=== PATIENT | female | born 2000 | race American Indian/Alaskan Native ===

== ENCOUNTER 2021-04-20 20:36 | Emergency (ER) | payer SELFPAY ==
[2021-04-21 00:10] VITALS: BP 131/78
[2021-04-21 00:53] LABS: Bilirubin,Urine NEG (Negative); Blood,Urine NEG (Negative); Color,Urine Yellow (Yellow); Mucus,Urine FEW /HPF; Protein,Urine <15 mg/dL mg/dL (Negative); Urobilinogen,Urine < 2.0 mg/dL (<2.0); WBC,Urine < 1.0 /HPF (0.0-6.0)
== END 2021-04-21 05:25 | disposition left against medical advice (07) ==
LOC: ED 20:36
DX: R11.10 Vomiting, unspecified (principal); Z53.21 Procedure and treatment not carried out due to patient leaving prior to being seen by health care provider
CPT/HCPCS: 81001

== ENCOUNTER 2021-11-09 09:52 | Outpatient (CLI) | payer OTHER ==
[2021-11-09 10:29] VITALS: BP 119/74
[2021-11-09] MEDS ORDERED: LACTATED RINGERS 500 ML IV ONE (10:53)
[2021-11-09] MEDS ORDERED: LACTATED RINGERS 1,000 ML IV SCH (11:00)
[2021-11-09 11:22] LABS: Bacteria,Urine 1+ /HPF (Negative); Bilirubin,Urine NEG (Negative); Blood,Urine NEG (Negative); Color,Urine Yellow (Yellow); Protein,Urine <15 mg/dL mg/dL (Negative); Urobilinogen,Urine < 2.0 mg/dL (<2.0)
--- NOTE | 2021-11-09 12:44 | Ultrasound Report ---
US OB >= 14 weeks Fetus, US OB BPP wo non-stress INDICATION: wellbeing. TECHNIQUE: Transabdominal. COMPARISON: None available. FINDINGS: There is a single intrauterine . Biparietal Diameter = 8.5 cm Head Circumference = 31.2 cm Abdominal Circumference = 30.7 cm Femur Length = 6.82 cm Heart Rate: 140 beats per minute. Estimated Weight in grams (if calculated): 2502 Estimated Weight Growth Percentile (if calculated): 62 Position: cephalic. Cervix: closed. Length in cm (if measured): 3.3 Placenta: free of the os. Amniotic Fluid Volume: normal Amniotic Fluid Index (FLORA) in cm (if calculated): 14.2. Biophysical Profile: breathing movements: 2 movements:2 posture and tone:2 Qualitative amniotic fluid volume: 2 IMPRESSION: 1. Single, living intrauterine with estimated sonographic age of 34 weeks, 1 day(s). 2. Biophysical profile 04/12 Signer Name: Stefano Arreguin MD Signed: 11/09/2021 12:39 PM Workstation Name: [id number]
== END 2021-11-09 12:56 | disposition home or self-care (01) ==
LOC: TRG 09:52 → APU 09:53 → TRG 12:56
PROVIDERS: ATTEND Obstetrics & Gynecology
DX: Z34.93 Encounter for supervision of normal pregnancy, unspecified, third trimester (principal); Z3A.34 34 weeks gestation of pregnancy
CPT/HCPCS: 59025; 76805; 76819; 81001; 86850; 86900; 86901